=== PATIENT | male | born 1980 | race Caucasian/White ===

== ENCOUNTER 2016-07-03 14:12 | Emergency (ER) | payer MEDICAID ==
[2016-07-03] MEDS ORDERED: OPTIRAY 350 100 ML VIAL HMH IV ONE (14:13)
[2016-07-03] MEDS ORDERED: ONDANSETRON 4 MG VIAL ONE (19:56)
[2016-07-03] MEDS ORDERED: SODIUM CHLORIDE 0.9% 1,000 ML ONE (19:57)
[2016-07-03] MEDS ORDERED: MORPHINE 4 MG/ML SYR ONE (19:57)
== END 2016-07-03 23:31 | disposition home or self-care (01) ==
LOC: ER 14:12
DX: K57.32 Diverticulitis of large intestine without perforation or abscess without bleeding (principal); F17.210 Nicotine dependence, cigarettes, uncomplicated
CPT/HCPCS: 36415; 74177; 80053; 81003; 83690; 85025; 96361; 96374; 96375